=== PATIENT | female | born 1945 | race Caucasian/White ===

== ENCOUNTER 2020-11-27 06:34 | Emergency (ER) | payer OTHER, MEDICAID ==
[~2020-11-27] VITALS: Ht 170.2 cm; Wt 68.0 kg
[~2020-11-27 06:34] MED LIST: ALEN70TA79 PO; AMLO2.5T45 PO; CILO100T PO; HYDR25TA PO; LISI40TA13 PO; MONT10TA32 PO; SIMV10TA97 PO
[2020-11-27] MEDS ORDERED: KETOROLAC 30MG/ML VIAL IV STA (06:52)
[2020-11-27] MEDS ORDERED: MECLIZINE 25MG TABLET PO ONE (07:00)
[2020-11-27] MEDS ORDERED: METOCLOPRAMIDE HCL 10MG/2ML VIAL IV ONE (07:00)
[2020-11-27] MEDS ORDERED: SODIUM CHLORIDE 0.9% 1,000 ML IV ONE ×2 (07:00→09:30)
[2020-11-27 07:37] LABS: BASOPHILS % 1.2 % (0.0-2.0); EOSINOPHILS % 1.9 % (0.0-5.0); HEMATOCRIT. 39.6 % (36.0-48.0); HEMOGLOBIN. 13.2 g/dL (12.0-16.0); LYMPHOCYTES % 20.1 % (20.0-50.0); MEAN CORPUSCULAR HEMOGLOBIN 29.2 pg (28.0-32.0); MEAN CORPUSCULAR VOLUME 87.7 fL (81.0-99.0); MONOCYTES % 6.2 % (2.0-8.0); NEUTROPHILS % 70.6 % (40.0-76.0); PLATELET 211 x1000/uL (130-400); RED BLOOD CELL COUNT 4.52 mill/uL (4.2-5.4); RED CELL DISTRIBUTION WIDTH 14.9 % (11.6-14.6)
[2020-11-27 07:47] LABS: PROTHROMBIN TIME 10.8 sec (9.6-11.0)
[2020-11-27 07:48] LABS: CHLORIDE 108 mEq/L (98-107)
[2020-11-27] MEDS ORDERED: ONDANSETRON HCL 4MG/2ML INJ IV ONE (09:30)
[2020-11-27] MEDS ORDERED: MECL-159 PO (10:47)
[2020-11-27 11:32] VITALS: BP 156/63
== END 2020-11-27 11:35 | disposition home or self-care (01) ==
LOC: ER 06:34
DX: R51.9 Headache, unspecified (principal); R42 Dizziness and giddiness; E11.9 Type 2 diabetes mellitus without complications; I10 Essential (primary) hypertension; Z86.73 Personal history of transient ischemic attack (TIA), and cerebral infarction without residual deficits
CPT/HCPCS: 36415; 70450; 80053; 85025; 85610; 93005; 96361; 96374; 96375; 99285; J1885; J2765; J7030; J8597